=== PATIENT | male | born 1995 | race Hispanic/Latino ===

== ENCOUNTER 2016-09-09 15:50 | Emergency (ER) | payer OTHER ==
[~2016-09-09 15:50] MED LIST: IBUP-1827 PO
[2016-09-09 15:53] VITALS: BP 129/78; PULSE 67; RESP 18; O2SAT 100
[2016-09-09] MEDS ORDERED: TdaP Vaccine 0.5 mL Inj IM ONE (16:40)
--- NOTE | 2016-09-09 16:49 | ED.REPORT ---
HPI-General Illness Date of Service September 09, 2016 ED Provider: Antelmo Martins PA-C Jim is otherwise healthy 20-year-old male presenting with chief complaint laceration. Patient cut his left thumb with a box sorter just prior to presentation. He is unsure of his tetanus status. Denies comorbidities such as diabetes, HIV or immunosuppressive drugs. Denies numbness/tingling in the thumb. Nursing Notes Stated Complaint: CUT ON LEFT THUMB Chief Complaint: Laceration Nursing Notes Reviewed: Yes Allergies: Coded Allergies: No Known Allergies (Unverified , 09/09/16) Scheduled PRN Ibuprofen (Ibuprofen) 600 Mg Tablet 600 MG PO QID PRN PRN For Pain General Time Seen by MD: 15:57 Chief Complaint Laceration Past Medical History Past Medical History Denies Past Surgical History Left ankle surgery June 2014 Right wrist surgery Family History noncontributory Smoking History Unknown if Ever Smoker Social History Other Social History: Good social support Ambulatory Status Independent Review of Systems Negative unless stated otherwise in history of present illness Physical Exam General: Well appearing, well developed, well nourished, no acute distress. Left thumb: 2 cm transverse laceration on the dorsal aspect just distal to the MCP joint. Base is well visualized, no incursion into the joint space or tendon. No foreign bodies. Sensation intact on both the radial and ulnar aspect of the distal thumb, brisk capillary refill. Full strength and range of motion at MCP, PIP and DIP joints. Head: Atraumatic, normocephalic. Eyes: No scleral icterus or injection. No discharge. Vision grossly intact. ENT: Voice clear, hearing grossly intact. Respiratory: No respiratory distress, no increased work of breathing. Speaks in complete sentences. Skin: Warm and dry. Neurological: Grossly nonfocal. Psychological: alert and oriented. Speech appropriate, linear and logical. Behavior appropriate. Vital Signs Vital Signs Date Time Temp Pulse Resp B/P Pulse Ox O2 Delivery O2 Flow Rate FiO2 09/09/16 15:53 36.9 67 18 129/78 100 Room Air Procedures Laceration Management Procedure Performed by: Allied health pract Consent / Setup / Site Prep: Informed consent provided, Consent from patient , Hand hygiene observed, Stand sterile technique Wound Length: 2 cm Local Anesthesia: Lidocaine 1%, 2cc, 27g needle Digit Involved: Thumb left Wound Preparation: [place] Debridement: None Foreign Body Explore / Removal: Explored for foreign body Repair Skin: Nylon (5-0) # Sutures - Skin: 6 Suture Technique: Simple Post-Procedure / Complications: Antibiotic oint applied, Dressing applied, No complications, Condition improved, Tolerated procedure well, Patient stable Re-Eval/Medical Decision Med Decision/Clinical Course Otherwise healthy 20-year-old presents with a laceration to his left thumb just distal to the MCP joint. Unsure of tetanus status, denies comorbidities. Physical examination reveals full strength and range of motion, sensation, circulation. Provided tetanus booster. See no indication for antibiotics. Thoroughly washed and closed in 1 layer with 6 interrupted 5-0 nylon sutures. Provided wound care instructions, instructions for [id number] analgesic, follow-up instructions, emergency return precautions. Patient verbalizes understanding of and consent to the plan Discharge & Departure Primary Impression: Laceration Disposition: Home Discharge Condition All VS Reviewed: Yes Condition: Stable Patient Instructions: Laceration (ED) Additional Instructions: Evaluation in the emergency department for a laceration. This appears to be a clean wound, with no damage to the joint capsule or tendons. I see no indication for antibiotics at this time. We have given you a tetanus booster. We have cleaned, sutured and dressed the wound with antibiotic ointment and gauze. Please leave this dressing on and dry for the next 24 hours. After that you can remove the dressing, clean with soap and water and then reapply antibiotic ointment and gauze or Band-Aid. Please do not submerge the wound as in washing dishes, swimming or soaking in a tub until you have the sutures removed. The pain is best treated with 400 mg of ibuprofen (Advil, Motrin) every 6 hours , or 1000 mg of acetaminophen (Tylenol) every 6 hours. These drugs can be taken at the same time for more severe pain. Be vigilant for signs of infection. While a small amount of redness, tenderness and clear or pink drainage is normal, any increasing pain, redness, swelling or the appearance of pus suggests infection. More severe infection as suggested by symptoms such as fever, chills, feeling ill, racing heart. Please return to emergency Department if you notice signs of infection. Follow-up with your primary care provider or return to the emergency department in 7 days for suture removal. Referrals: [facility] Provider for APC: HarmonAndrew lackey MD, Seth PA-C September 09, 2016 16:49
[2016-09-09 17:17] VITALS: BP 123/7; PULSE 57; RESP 16; O2SAT 99
[2016-09-09 17:20] VITALS: BP 123/7; PULSE 57; RESP 16; O2SAT 99
== END 2016-09-09 17:24 | disposition home or self-care (01) ==
LOC: SED 15:50
DX: S61.012A Laceration without foreign body of left thumb without damage to nail, initial encounter (principal); W26.8XXA Contact with other sharp object(s), not elsewhere classified, initial encounter; Y93.89 Activity, other specified; Y92.69 Other specified industrial and construction area as the place of occurrence of the external cause; Y99.0 Civilian activity done for income or pay; Z23 Encounter for immunization